=== PATIENT | female | born 1960 | race Caucasian/White ===

== ENCOUNTER 2021-12-16 07:57 | Day surgery (SDC) | payer MEDICAID ==
[~2021-12-16] VITALS: Ht 170.2 cm; Wt 73.0 kg
[2021-12-16] MEDS ORDERED: DIPHENHYDRAMINE INJ 50 MG/ML VIAL ONE (09:06)
[2021-12-16] MEDS ORDERED: MIDAZOLAM HCL 5 MG/ML VIAL (VERSED) IV ONE (11:38)
[2021-12-16] MEDS ORDERED: methylPREDNISolone ACETATE 80 MG/ML IM ONE (11:38)
[2021-12-16] MEDS ORDERED: DIPHENHYDRAMINE INJ 50 MG/ML VIAL IV ONE (11:38)
[2021-12-16] MEDS ORDERED: IOHEXOL 300mgI/mL,100 ML INFUS..BTL IV ONE (11:38)
[2021-12-16] MEDS: MIDAZOLAM HCL 5 MG/5 ML VIAL ONE ×2 (11:39→11:44)
[2021-12-16 13:04] VITALS: BP_SYST 153
== END 2021-12-16 12:45 | disposition home or self-care (01) ==
LOC: SDS 07:57 → SMU 07:59 → SDS 12:45
PROVIDERS: ATTEND Internal Medicine
DX: M50.13 Cervical disc disorder with radiculopathy, cervicothoracic region (principal); I10 Essential (primary) hypertension; Z79.899 Other long term (current) drug therapy; Z20.822 Contact with and (suspected) exposure to COVID-19
CPT/HCPCS: 36415 ×2; 62321; 87426; J1040; J1200; J2250 ×2; Q9967; U0003; 76000

== ENCOUNTER 2022-11-03 07:19 | Day surgery (SDC) | payer MEDICAID ==
[~2022-11-03] VITALS: Ht 170.2 cm; Wt 71.2 kg
[2022-11-03] MEDS ORDERED: MIDAZOLAM HCL 5 MG/5 ML VIAL ONE (08:28)
[2022-11-03] MEDS ORDERED: MEPERIDINE 50 MG/ML VIAL ONE (08:28)
[2022-11-03] MEDS ORDERED: DIPHENHYDRAMINE INJ 50 MG/ML VIAL ONE (08:40)
[2022-11-03 14:57] VITALS: BP_SYST 150
== END 2022-11-03 10:40 | disposition home or self-care (01) ==
LOC: SDS 07:19 → SMU 07:20 → SDS 10:40
PROVIDERS: ATTEND Internal Medicine Gastroenterology
DX: Z12.11 Encounter for screening for malignant neoplasm of colon (principal); K63.5 Polyp of colon; K57.30 Diverticulosis of large intestine without perforation or abscess without bleeding; K64.9 Unspecified hemorrhoids; K86.9 Disease of pancreas, unspecified; Z86.010 Personal history of colon polyps; I10 Essential (primary) hypertension; F41.9 Anxiety disorder, unspecified; F32.A Depression, unspecified; Z87.891 Personal history of nicotine dependence; Z79.899 Other long term (current) drug therapy; Z98.890 Other specified postprocedural states
CPT/HCPCS: 45385; 88305; 99152; 99153; G0378; J1200; J2250; J2175